=== PATIENT | female | born 1985 | race Caucasian/White ===

== ENCOUNTER 2016-09-18 07:06 | Emergency (ER) | payer OTHER ==
[~2016-09-18] VITALS: Ht 162.6 cm; Wt 57.0 kg
[2016-09-18 07:11] VITALS: BP 110/57; PULSE 80; RESP 16; TEMP 98.6; O2SAT 99
[2016-09-18] MEDS ORDERED: CYMB30CA PO ×2 (07:20→07:25)
--- NOTE | 2016-09-18 07:29 | PD ---
HPI Chief Complaint: Medication Refill Request Time Seen by Provider: 07:12 Travel History International Travel<30 days: No Contact w/Intl Traveler<30days: No Traveled to known affect area: No History of Present Illness HPI This is a 31-year-old female who presents today requesting a refill of her Cymbalta. The patient moved down here from [place] 3-4 weeks ago. She states she has not established a primary care physician. She states she last took it 2 days ago. She takes the Cymbalta for depression and neuropathy. She denies any fevers, chills patient has any medical problems. PFSH Past Medical History Depression: Yes Medical other: Yes (NEUROPATHY) ?: Not LMP: 2 WEEKS AGO Past Surgical History Surgical History: No Previous Surgery Social History Alcohol Use: No Tobacco Use: Yes Substance Use: No Allergies-Medications (Allergen,Severity, Reaction): Coded Allergies: No Known Allergies (Unverified , 09/18/16) Reported Meds & Prescriptions Reported Meds & Active Scripts Active Reported Cymbalta DR (Duloxetine HCl) 30 Mg Capdr 30 Mg PO DAILY Review of Systems Except as stated in HPI: all other systems reviewed are Neg General / Constitutional: No: Fever, Chills Cardiovascular: No: Chest Pain or Discomfort, Palpitations Respiratory: No: Cough, Shortness of Breath Gastrointestinal: No: Nausea, Vomiting Genitourinary: No: Frequency, Dysuria Neurologic: Positive: Dizziness (mild), No: Weakness, Headache Physical Exam Narrative GENERAL: Well-nourished, well-developed patient. SKIN: Focused skin assessment warm/dry. HEAD: Normocephalic/atraumatic. EYES: No scleral icterus. No injection or drainage. NECK: Supple, trachea midline. No JVD or lymphadenopathy. CARDIOVASCULAR: Regular rate and rhythm without murmurs, gallops, or rubs. RESPIRATORY: Breath sounds equal bilaterally. No accessory muscle use. GASTROINTESTINAL: Abdomen soft, non-tender, nondistended. MUSCULOSKELETAL: No cyanosis, or edema. NEUROLOGICAL: Awake and alert. Cranial nerves II through XII intact. Motor grossly within normal limits. Five out of 5 muscle strength in all muscle groups. Normal speech. PSYCHIATRIC: No delusional thought processes. No hallucinations. Data Data Last Documented VS Vital Signs Date Time Temp Pulse Resp B/P Pulse Ox O2 Delivery O2 Flow Rate FiO2 09/18/16 07:11 98.6 80 16 110/57 99 Room Air MDM Medical Decision Making Medical Screen Exam Complete: Yes Emergency Medical Condition: Yes Differential Diagnosis Depression versus medication refill versus anxiety Narrative Course 31-year-old female recently moved here from [place], presents with request for medication refill of her Cymbalta. The patient has been out for 2 days. She started to feel a funny sensation. I informed her that I usually do not refill medications however will today for 30 days. She'll be given information on the [place] [facility]. Diagnosis Primary Impression: Depression Additional Impression: Medication refill Referrals: [facility] Duloxetine (Cymbalta )30 Mg Capdr30 Mg PO DAILY #30 CAP Ref 0 Prov:Gerardo Jimenez MD 09/18/16 Disposition: 01 DISCHARGE HOME Condition: Stable Gerardo Jimenez MD Sep 18, 2016 07:29
[2016-11-22] MEDS ORDERED: CYMB30CA PO (09:29)
[2016-11-22] MEDS ORDERED: FLUT1SPR5 EACH NARE (10:18)
== END 2016-09-18 07:44 | disposition home or self-care (01) ==
LOC: PHED 07:06
DX: F32.9 Major depressive disorder, single episode, unspecified (principal); Z76.0 Encounter for issue of repeat prescription; R42 Dizziness and giddiness
CPT/HCPCS: 99281